=== PATIENT | male | born 1975 | race Caucasian/White ===

== ENCOUNTER → 2019-12-26 | Outpatient (CLI) | payer OTHER ==
[~2019-12-26] MED LIST: OMEPRAZOLE 20 M20 M1 PO; PAXIL40 MG PO; TYLENOL #3 PO
== END ==
LOC: M.PC 10:10
PROVIDERS: ATTEND Physical Medicine & Rehabilitation
DX: M54.5 Low back pain (principal); M25.551 Pain in right hip